=== PATIENT | female | born 2005 | race African-American/Black ===

== ENCOUNTER 2025-06-16 10:31 | Emergency (ER) | payer OTHER ==
[~2025-06-16] VITALS: Ht 172.7 cm; Wt 57.6 kg
[2025-06-16 11:07] LABS: BASO # 0.0 10^3/uL (0.0-0.2); BASO % 0.4 % (0.0-1.0); EOS # 0.1 10^3/uL (0.0-0.5); EOS % 2.1 % (0.0-3.0); LYMPH # 1.6 10^3/uL (1.5-5.0); LYMPH % 29.9 % (24.0-44.0); MONO # 0.4 10^3/uL (0.0-0.8); MONO % 6.9 % (2.0-8.0); NEUTROPHILS # 3.2 10^3/uL (1.5-8.5); NEUTROPHILS % 60.5 % (36.0-66.0); PLATELET COUNT, AUTOMATED 295 10^3/uL (150-450)
[2025-06-16 11:19] LABS: INR 1.0
[2025-06-16 11:40] LABS: CK-MB VALUE MASS < 1.0 NG/ML (<3.6)
[2025-06-16 11:43] LABS: ALT/SGPT 15 U/L (7.0-40); AST/SGOT 18 U/L (<34); CALCIUM LEVEL 8.8 MG/DL (8.5-10.1); CARBON DIOXIDE LEVEL 27 MMOL/L (20-31); CHLORIDE LEVEL 107 MMOL/L (98-107); CPK CREATINE PHOSPHOKINASE 163 U/L (34-145); CREATININE FOR GFR 0.71 MG/DL (0.55-1.30); GLOMERULAR FILTRATION RATE > 90.0 (>60); POTASSIUM SERUM 4.0 MMOL/L (3.5-5.1); SODIUM LEVEL 142 MMOL/L (136-145)
[2025-06-16 11:44] LABS: FREE T4 0.87 NG/DL (0.89-1.76)
[2025-06-16 11:45] LABS: HCG, SERUM QUALITATIVE NEGATIVE (NEGATIVE)
[2025-06-16] MEDS ORDERED: ONDA-282 PO (14:06)
[2025-06-16 14:15] VITALS: BP 111/70; TEMP 98.2; O2SAT 99
== END 2025-06-16 14:17 | disposition home or self-care (01) ==
LOC: M ED 10:31
DX: J06.9 Acute upper respiratory infection, unspecified (principal); Z79.899 Other long term (current) drug therapy